=== PATIENT | female | born 1990 | race Caucasian/White ===

== ENCOUNTER 2017-07-10 11:25 | Inpatient (IN) | payer BC ==
[~2017-07-10] VITALS: Ht 162.6 cm; Wt 83.1 kg
[2017-07-10] MEDS ORDERED: TERBUTALINE 1 MG/ML, 1ML IVPush PRN (11:30)
[2017-07-10] MEDS ORDERED: ONDANSETRON 2MG/ML, 2ML IVPush PRN (11:30)
[2017-07-10] MEDS ORDERED: SODIUM CITRATE/CITRIC ACID 30 ML UDC PO PRN (11:30)
[2017-07-10] MEDS ORDERED: D5%-LACTATED RINGERS 1,000 ML IV SCH (11:30)
[2017-07-10] MEDS ORDERED: METOCLOPRAMIDE 5 MG/ML, 2ML IVPush PRN (11:30)
[2017-07-10] MEDS ORDERED: LACTATED RINGERS 1,000 ML IV SCH (11:30)
[2017-07-10] MEDS ORDERED: FENTANYL PF 100 MCG/2ML IVPush PRN (11:30)
[2017-07-10] MEDS ORDERED: CLINDAMYCIN PMX 900MG/50ML 50 ML IVPB SCH (11:30)
[2017-07-10] MEDS ORDERED: FENTANYL PF 100 MCG/2ML IV PRN (11:30)
[2017-07-10] MEDS ORDERED: OXYTOCIN 30U/ 0.9% NaCL 500ML 500 ML IV ONE (11:30)
[2017-07-10 11:48] VITALS: BP 119/73
[2017-07-10] MEDS ORDERED: PLEASE ENTER ALLERGIES MC SCH ×2 (12:00)
[2017-07-10] MEDS ORDERED: PLEASE ENTER HEIGHT AND WEIGHT MC SCH (12:00)
[2017-07-10 12:15] LABS: HEMATOCRIT 42.8 % (34.6-47.8); HEMOGLOBIN 14.6 g/dL (11.7-16.4); WHITE BLOOD COUNT 11.7 x10^3/uL (3.4-10)
[2017-07-10] MEDS ORDERED: NEWBORN KIT ONE (12:38)
[2017-07-10] MEDS ORDERED: OXYTOCIN 30U/ 0.9% NaCL 500ML 500 ML ONE ×2 (12:39→16:56)
[2017-07-10] MEDS ORDERED: MISOPROSTOL 200 MCG TABLET ONE (12:39)
[2017-07-10] MEDS ORDERED: CLINDAMYCIN PMX 900MG/50ML 50 ML ONE (12:39)
[2017-07-10] MEDS ORDERED: LIDOCAINE 1%, 20ML ONE (12:39)
[2017-07-10] MEDS ORDERED: ONDANSETRON 2MG/ML, 2ML IV PRN (15:30)
[2017-07-10] MEDS ORDERED: ACETAMINOPHEN 325 MG TABLET PO PRN (15:30)
[2017-07-10] MEDS ORDERED: IBUPROFEN 600 MG TABLET ONE (15:30)
[2017-07-10] MEDS ORDERED: MISOPROSTOL 200 MCG TABLET SL PRN (15:30)
[2017-07-10] MEDS ORDERED: OXYTOCIN 30U/ 0.9% NaCL 500ML 500 ML IV SCH (15:30)
[2017-07-10] MEDS ORDERED: OXYcodone/APAP 5/325MG TABLET PO PRN (15:30)
[2017-07-10] MEDS ORDERED: OXYcodone IR 5MG TABLET PO PRN (15:30)
[2017-07-10] MEDS: IBUPROFEN 600 MG TABLET PO PRN ×2 (15:35→21:39)
[2017-07-10] MEDS ORDERED: OXYcodone/APAP 5/325MG TABLET ONE (16:52)
[2017-07-10 17:35] VITALS: BP 109/61
[2017-07-10 19:55] VITALS: BP 112/61
[2017-07-10] MEDS: DOCUSATE 100 MG CAPSULE PO PRN (21:39)
[2017-07-10] MEDS ORDERED: DIPH,PERTUSS(ACELL),TET VAC/PF NC IM-VACC ONE (22:00)
[2017-07-10 23:37] LABS: HEMATOCRIT 36.3 % (34.6-47.8); HEMOGLOBIN 12.3 g/dL (11.7-16.4); WHITE BLOOD COUNT 15.6 x10^3/uL (3.4-10)
[2017-07-11] VITALS: BP 104/66
[2017-07-11 04:10] VITALS: BP 109/63
[2017-07-11] MEDS ORDERED: OXYC-302 PO (04:42)
[2017-07-11] MEDS ORDERED: IBUP-1222 PO (04:43)
[2017-07-11 08:30] VITALS: BP 110/68
[2017-07-11] MEDS: PRENATAL VIT/IRON/FA 1 EACH TABLET PO SCH (09:00)
[2017-07-11] MEDS ORDERED: DIPH,PERTUSS(ACELL),TET VAC/PF NC IM-VACC ONE (12:00)
[2017-07-11] MEDS: DOCUSATE 100 MG CAPSULE PO PRN (12:06)
[2017-07-11 19:43] VITALS: BP 106/61
[2017-07-12] MEDS: IBUPROFEN 600 MG TABLET PO PRN ×2 (01:52→07:46)
[2017-07-12] MEDS: DOCUSATE 100 MG CAPSULE PO PRN ×2 (01:52→07:46)
[2017-07-12 08:02] VITALS: BP 108/64
[2017-07-12] MEDS: PRENATAL VIT/IRON/FA 1 EACH TABLET PO SCH (08:37)
[2017-07-12] MEDS ORDERED: OXYC-302 PO (09:31)
== END 2017-07-12 13:52 | disposition home or self-care (01) | DRG 775 ==
LOC: LDIP 11:25 → 2NW 17:21
PROVIDERS: ADMIT Obstetrics & Gynecology; ATTEND Obstetrics & Gynecology
PROC: 0KQM0ZZ Repair Perineum Muscle, Open Approach (ICD-10-PCS; principal; 2017-07-11)
PROC: 10E0XZZ Delivery of Products of Conception, External Approach (ICD-10-PCS; 2017-07-11)
DX: O60.14X0 Preterm labor third trimester with preterm delivery third trimester, not applicable or unspecified (principal); O70.1 Second degree perineal laceration during delivery; Z37.0 Single live birth; Z3A.36 36 weeks gestation of pregnancy
CPT/HCPCS: 36415; 85025; 86850; 86900; 90715; J2590; J7120